=== PATIENT | female | born 1955 | race Caucasian/White ===

== ENCOUNTER → 2017-08-17 16:58 | Outpatient (CLI) | payer OTHER, SELFPAY ==
--- NOTE | 2017-08-17 | CYSPIN_PTH ---
PATIENT: TIMO VORA LOC: [facility] U#:[id number] AGE/SX: 69/F ROOM: RE08/17/[address]: BRADFORD Gustafson : 1955 BED: DIS: SPEC #: [id number] RECD: 08/18/17 07:51 STATUS: BRUCE DAVID #: [id number] MILI: 08/17/17 00:[address]: Catalina Brownlee NP DEPT: CYTOLOGY RECD BY: Sam Ross Tissues: Urine Procedures: Pap Stain (control) Special Stain Group II Cytospin Fluid HEADER OPERATION: Not noted PRE-OP DIAGNOSIS: Microhematuria TISSUE SUBMITTED: Urine for cytology DIAGNOSIS CYTOLOGY Urine for cytology (cytospin): Mildly atypical urothelial cells and a few crystals are noted. SJ:lilibeth 08/21/17 CYTOLOGY STUDY Slides are reviewed. CYTOLOGY GROSS Received is 15 ml of yellow, cloudy fluid labeled with the patient's name and and designated per the requisition as urine. Submitted for cytology preparation. 08/18/17 TC:5 CPT: 06132
[2017-08-17 17:01] LABS: Cytology, Body Fluid / CSF SEE PATHOLOGY REPORT
== END ==
PROVIDERS: Family Provider Internal Medicine; PCP Internal Medicine; Visit Provider Nurse Practitioner Adult Health
DX: R31.29 Other microscopic hematuria (principal)
CPT/HCPCS: 88108; 88313